=== PATIENT | female | born 1965 | race Caucasian/White ===

== ENCOUNTER 2017-03-10 21:16 | Emergency (ER) | payer BC ==
[2017-03-10 21:26] VITALS: BP 167/98; PULSE 86; RESP 18; TEMP 98.1; O2SAT 100
[2017-03-10] MEDS ORDERED: LORAZEPAM 1 MG PREPACK#4 BTL TAKEHOME ONE (21:32)
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
== END 2017-03-10 21:40 | disposition home or self-care (01) ==
DX: F43.22 Adjustment disorder with anxiety (principal); I10 Essential (primary) hypertension